=== PATIENT | male | born 1940 | race Caucasian/White ===

== ENCOUNTER 2019-05-22 19:50 | Inpatient (IN) | payer MEDICAID, MEDICARE ==
[~2019-05-22] VITALS: Ht 172.7 cm; Wt 70.3 kg
[~2019-05-22 19:50] MED LIST: LR 1,000 ML IV.SOLN IV ONE; MIDAZOLAM HCL 5 MG/5 ML VIAL IVP ONE; NS IRRIG SOLN 1000 ML IR ONE
[2019-05-22 19:55] VITALS: BP_SYST 99
--- NOTE | 2019-05-22 20:00 | NUR ---
patient BIB BLS transport from [facility] with c/o lower left leg and foot infection. patient is AOx2 and can not move foot. cap refill is greater than 3. no other complaint or injury at this time.
--- NOTE | 2019-05-22 20:10 | NUR ---
patient has 6-8 large circular growths that are hard to the touch. no drainage note. foot left open to air.
--- NOTE | 2019-05-22 20:10 | NUR ---
ER at bedside examining patient.
[2019-05-22] MEDS ORDERED: NACL 0.9% 1,000 ML IV ONE (20:24)
[2019-05-22] MEDS ORDERED: ACET325T53 PO (20:30)
[2019-05-22] MEDS ORDERED: DOCU-144 PO (20:30)
[2019-05-22] MEDS ORDERED: NOR10 PO (20:30)
[2019-05-22] MEDS ORDERED: VANCOMYCIN HCL 1,000 MG in NS 250 ML IV ONE (20:30)
--- NOTE | 2019-05-22 20:31 | NUR ---
Medication reconciliation completed with information provided by [facility]. Any prior medication reconciliation on file was reviewed and corrected.
--- NOTE | 2019-05-22 20:45 | NUR ---
unable to obtain urine. notified.
[2019-05-22 21:56] LABS: BASOPHILS # (AUTO) 0.1 K/uL (0.0-0.2); BASOPHILS % (AUTO) 0.8 % (0.0-2.0); EOSINOPHILS # (AUTO) 0.4 K/uL (0.0-0.4); EOSINOPHILS % (AUTO) 5.1 % (0.0-4.0); HEMATOCRIT 24.5 % (36-54); HEMOGLOBIN 8.2 g/dL (14.0-18.0); LYMPHOCYTES # (AUTO) 1.9 K/uL (1.0-5.5); MEAN CORPUSCULAR HEMOGLOBIN 28 pg (27-31); MEAN CORPUSCULAR HGB CONC 33 % (32-36); MEAN CORPUSCULAR VOLUME 83 fL (79.0-98.0); MONOCYTES # (AUTO) 0.9 K/uL (0.0-1.0); MONOCYTES % (AUTO) 11.8 % (1.7-9.3); NEUTROPHILS # (AUTO) 4.7 K/uL (1.8-7.7); NEUTROPHILS % (AUTO) 58.3 % (40.0-70.0); PLATELET COUNT (AUTO) 274 K/uL (130-430); RED BLOOD CELL COUNT(AUTO) 2.96 MIL/uL (4.2-6.2); RED CELL DISTRIBUTION WIDTH 20.6 % (9.0-15.0)
--- NOTE | 2019-05-22 22:25 | NUR ---
aPatient will be admitted to care of Dr. Ramirez. Admitted to tele unit. Will go to room 106a. Belongings list completed. Summary report printed. Report will be given at bedside.
[2019-05-22] MEDS ORDERED: VANCOMYCIN HCL 1000 MG/VIAL IV ONE (22:33)
[2019-05-22 22:39] LABS: ANION GAP 5 (5-15); CHLORIDE 106 mmol/L (98-107); CREATININE 0.79 mg/dL (0.55-1.30); POTASSIUM 3.8 mmol/L (3.5-5.1); SODIUM SERUM 137 mmol/L (136-145); TOTAL BILIRUBIN 0.3 mg/dL (0.0-1.0); UREA NITROGEN, BLOOD 16 mg/dL (8-21)
--- NOTE | 2019-05-22 22:40 | NUR ---
ADMISSION NOTE Received patient from ER via ana paula, received report from ANDREW Stephen. Patient admitted with diagnosis of Infection Malignant Melanoma. Daughters at the bedside. Patient oriented to hospital routine, call light, toileting and safety/fall precautions. Bed alarm on. Endorsed to ANDREW Hilario.
[2019-05-22 22:50] VITALS: BP_SYST 100
--- NOTE | 2019-05-22 23:00 | NUR ---
Pt incontinent of large amount of soft brownish stool. Incontinent/rebeca care given.
[2019-05-22] MEDS ORDERED: HYDR-4272 PO (23:01)
[2019-05-22 23:11] LABS: GLUCOSE 94 mg/dL (70-99)
[2019-05-22 23:12] LABS: ALANINE AMINOTRANSFERASE 12 U/L (12-78); ASPARTATE AMINOTRANSFERASE 15 U/L (10-37)
[2019-05-22 23:14] LABS: ALBUMIN 1.6 g/dL (3.4-4.8)
--- NOTE | 2019-05-22 23:20 | NUR ---
Wound care to RLE done after photos were taken. Please see documentation in Admission Assessment.
[2019-05-22] MEDS ORDERED: PIPERACILLIN/TAZOBACTAM 3.375 GM/VIAL (ZOSYN) IV ONE (23:28)
[2019-05-22 23:51] LABS: CALCIUM 8.1 mg/dL (8.4-11.0)
[2019-05-23] MEDS ORDERED: PIPERACILLIN/TAZOBACTAM 3.375 GM/VIAL (ZOSYN) IV ONE (00:29)
--- NOTE | 2019-05-23 00:33 | NUR ---
CONSULT: CONSULT CALLED FOR DR. DONNA SANCHEZ I SPOKE WITH HANS MAC REASON FOR CONSULT: INFECTED OF MALIGNANT MELANOMA LEFT LEG REQUESTING CONSULT: DR NEVILLE FUNERAL SERVICE LICENSEE PHONE NUMBER: [phone]
--- NOTE | 2019-05-23 00:36 | NUR ---
CONSULT: CONSULT CALLED FOR DR. ALCAZAR I SPOKE WITH GUERDA MAC REASON FOR CONSULT: INFECTED OF MALIGNANT MELANOMA LEFT LEG REQUESTING CONSULT: DR. NEVILLE BEST WORKER PHONE NUMBER: [phone]
--- NOTE | 2019-05-23 00:40 | NUR ---
Pt is confused and oriented to his name only. Pt took off his child monitor. Pt also took the Jose Luis dressing off his IV site in left hand. Pt was reoriented to his room and surrounding. surveillance monitor's electrodes were reapplied. IV site in left hand was reinforced with tape. Pt was instructed not to take off his child monitor or IV, but pt just covered himself up with his bed linen. Fall and safety precautions are in place.
[2019-05-23] MEDS: D5/0.45 NS 1,000 ML IV SCH ×2 (00:43→17:11)
[2019-05-23] MEDS: PIPERACILLIN/TAZO 3.375/DEX-IS 50 ML IV SCH ×4 (00:47→22:00)
--- NOTE | 2019-05-23 01:45 | NUR ---
Pt is confused and oriented to his name only. No agitation noted. Pt noted to have removed the IV Angiocath in his left hand. The Angiocath is intact and on his bed. Pt rolled up part of the IV tubing into a circular form and left it on his bed. Pt also took off his gown and laboratory monitor. Pt rolled up the laboratory monitor's wires and formed a knot with them. Pt was reoriented to his room and surrounding. New IV line was restarted in pt's LFA with Angiocath 22G and the site was wrapped with Jose Luis. IVF of D51/2NS was resumed at 75ml/hr. Fall and safety precautions are in place.
--- NOTE | 2019-05-23 03:21 | NUR ---
Pt is sleeping without any distress noted. Left foot dressing is dry and intact. IVF is infusing well in LFA. Fall and safety precautions are in place.
--- NOTE | 2019-05-23 05:23 | NUR ---
Pt is resting quietly in bed. IVF is infusing well in RW. Fall and safety precautions are in place.
--- NOTE | 2019-05-23 05:23 | NUR ---
Pt is resting quietly in bed. IVF is infusing well in LFA. Fall and safety precautions are in place.
--- NOTE | 2019-05-23 06:37 | NUR ---
Pt is awake and resting comfortably in bed. Left leg dressing is dry and intact. IVF is infusing well in LFA. Fall and safety precautions are in place. Will endorse to day shift nurse.
--- NOTE | 2019-05-23 07:19 | NUR ---
Nutrition Update Yobani Scale 15 noted. Pt admitted for Infection of Malignant Melanoma Diet: no diet order BMI: 28.7 kg/m2 RD to follow per nutrition care standards.
--- NOTE | 2019-05-23 08:10 | NUR ---
RN INITIAL NOTES RECEIVED PATIENT IN BED ASLEEP, NO DISTRESS IVF INFUSING ORDERED . RESP EVEN AND UNLABORED, NO DISTRESS A TTHIS TIME, PATIENT COVERED AND DRESSING OF LEFT FOOT, NO FACIAL GRIMACE NOTED, CALLED DR NEVILLE FOR THE DIET , WILL ASSIST PATIENT FOR THE BREAKFAST, AWAITING FOR WOUND CONSULT TODAY
[2019-05-23 09:00] VITALS: BP_SYST 136
--- NOTE | 2019-05-23 10:00 | NUR ---
ROUNDS PATIENT SLEEPING AT THIS TIME BUT WITH EPISODES OF TAKING OUT HIS TELE BOW AND THREW IT OUT, PATIENT ALSO STARTED WITH NEW IV LINE TO RT ARM G 22 , FOR IV HYDRATION , ASSISTED WITH BREAKFAST AND JUST ATE OATMEAL, WILL MONITOR AND FOLLOW UP WITH
[2019-05-23 11:17] VITALS: BP_SYST 120
--- NOTE | 2019-05-23 12:30 | NUR ---
[LUNCH PATIENT ATE LUNCH WITH ASSIST AND REDIRECTED BEHAVIOR , INTERMITTENTLY SLEEPING.
--- NOTE | 2019-05-23 14:27 | NUR ---
ID ROUNDS/ORTHO CONSULT DR DAMION THOMPSON CAME IN SEEN PATIENT LEFT FOOT MELANOMA, SUGGEST TO CALL PCP FOR POSSIBLE ORTHO CONSULT, CALLED DR NEVILLE ORDERED FOR ORTHO CONSULT ,REFRIGERATION INSTALLER WILL PAGE CONSULT DR WAITE.
--- NOTE | 2019-05-23 15:02 | NUR ---
CONSULTATION PAGED REASON FOR CONSULTATION:LEFT LEG MALIGNANT MELANOMA WAS CONSULT CALLED?Y PERSON WHO WAS NOTIFIED:HENRY CONSULTING PHYSICIAN:DARIN GIBBS (ROYA GARDNER INTEGRATION SOFTWARE DEVELOPER) OSTEOPATHIC RESIDENT SPECIALTY:ORTHO OSTEOPATHIC RESIDENT PHONE NUMBER:[phone] REQUESTING PHYSICIAN:BRONSON SUTOTN
[2019-05-23 15:48] VITALS: BP_SYST 130
--- NOTE | 2019-05-23 16:00 | NUR ---
ROUNDS FAMILY AT BEDSIDE BUT NOT THE RP . SPOKE WITH SON CASH INFORMED ABOUT PATIENT PLAN OF CONSULT TO THE ORTHO AND CONT ON ATB IV , PER SON HE WILL COME LATER, INFORMED SISTER AND SISTER LEFT DRESSING WAS DONE EARLIER AND AWAITING FOR THE SURGICAL AND ORTHO CONSULT, SAFETY ENSURED
--- NOTE | 2019-05-23 18:33 | NUR ---
END RN REPORT PATIENT SLEEPING AT THIS TIME , WILL OFFER DINNER ONCE AWAKE , SAFETY ENSURED AND CALL LIGHT WITHIN REACH, KEEP RESTED IN BED ALARM ACTIVATED.
--- NOTE | 2019-05-23 19:15 | NUR ---
OPENING NOTES Bedside report received from dayshift nurse. Patient received lying in bed, sleeping. No s/s of acute distress noted. Breathing even and unlabored. Call light with patient. Bed alarm on. Bed is locked and at lowest position. Will continue to monitor.
[2019-05-23 20:00] VITALS: BP_SYST 135
--- NOTE | 2019-05-23 21:00 | NUR ---
NEW IV New IV site done at right forearm, 22 gauge. Patient tolerated well. IV site patent, no signs of infiltration noted. IVF infusing well. Call light with patient. Bed alarm on. Will continue to monitor .
--- NOTE | 2019-05-23 23:00 | NUR ---
ROUNDS Patient in bed sleeping at this time. No s/s of acute distress noted. Breathing even and unlabored. Call light with patient. Will continue to monitor.
[2019-05-24] MEDS: D5/0.45 NS 1,000 ML IV SCH ×2 (00:37→15:07)
--- NOTE | 2019-05-24 01:00 | NUR ---
ROUNDS Patient sleeping. No signs of discomfort noted. Chest rise and fall even bilaterally. All needs met at this time. Call light with patient. Bed alarm on. Will continue to monitor.
[2019-05-24 01:20] VITALS: BP_SYST 104
--- NOTE | 2019-05-24 03:00 | NUR ---
ROUNDS Patient in bed sleeping at this time. No s/s of acute distress noted. Breathing even and unlabored. IVF infusing well. Call light with patient. Bed alarm on. Will continue to monitor.
--- NOTE | 2019-05-24 05:00 | NUR ---
ROUNDS/REFUSED LAB Patient in bed resting at this time. No signs of discomfort noted. Chest rise and fall even bilaterally. IVF infusing well. Call light with patient. Bed alarm on. Will continue to monitor. Machine Cloth Measurer informed RN that patient was refusing blood draw, will try again later.
[2019-05-24] MEDS: PIPERACILLIN/TAZO 3.375/DEX-IS 50 ML IV SCH ×3 (05:22→22:08)
--- NOTE | 2019-05-24 06:42 | NUR ---
CLOSING NOTES Patient in bed sleeping at this time. No s/s of acute distress noted. Breathing even and unlabored. IVF infusing well, IV site patent, no signs of infiltration or infection noted. All needs met throughout shift. Fall and safety precautions maintained throughout shift. Will continue to monitor until patient care is endorsed to oncoming dayshift nurse.
--- NOTE | 2019-05-24 07:50 | NUR ---
OPENING NOTE RECEIVED PATIENT FROM SOCIAL SCIENCE MANAGER. RESTING IN BED; EASILY AROUSABLE. NO S/SX PAIN/DISCOMFORT. ROOM AIR. NO ACUTE DISTRESS. NO SOB. RESPIRATION EVEN AND UNLABORED. SKIN WARM AND DRY TO TOUCH. IV INTACT AND PATENT. WOUND DRESSING CLEAN AND DRY. BED IN LOW AND LOCKED POSITION. SIDERAIL UP X2. BED ALARM ON. CALL LIGHT IN REACH. BLUE PHONE AVAILABLE AT BEDSIDE FOR TRANSLATION.
[2019-05-24 08:00] VITALS: BP_SYST 126
[2019-05-24] MEDS ORDERED: DIATR MEGLU/DIATRIZ SOD 30 ML SOLUTION PO ONE (08:47)
[2019-05-24 09:19] LABS: BASOPHILS % (AUTO) 0.6 % (0.0-2.0); EOSINOPHILS # (AUTO) 0.4 K/uL (0.0-0.4); EOSINOPHILS % (AUTO) 5.3 % (0.0-4.0); HEMATOCRIT 26.9 % (36-54); HEMOGLOBIN 8.8 g/dL (14.0-18.0); LYMPHOCYTES # (AUTO) 1.1 K/uL (1.0-5.5); LYMPHOCYTES % (AUTO) 13.8 % (20.5-51.5); MEAN CORPUSCULAR HEMOGLOBIN 27 pg (27-31); MEAN CORPUSCULAR HGB CONC 33 % (32-36); MEAN CORPUSCULAR VOLUME 83 fL (79.0-98.0); MONOCYTES # (AUTO) 0.6 K/uL (0.0-1.0); NEUTROPHILS # (AUTO) 5.7 K/uL (1.8-7.7); NEUTROPHILS % (AUTO) 72.3 % (40.0-70.0); PLATELET COUNT (AUTO) 266 K/uL (130-430); RED BLOOD CELL COUNT(AUTO) 3.23 MIL/uL (4.2-6.2); RED CELL DISTRIBUTION WIDTH 20.5 % (9.0-15.0); WHITE BLOOD COUNT (AUTO) 7.9 K/uL (4.8-10.8)
--- NOTE | 2019-05-24 09:31 | NUR ---
Dietitian Recommendations *Recommend Mechanical soft diet w/ Ensure Enlive BID and Rashad BID. ONS will provide additional 860 kcal and 45 gm protein daily. *Consider Megace to stimulate appetite. *Encourage pt to increase PO intake. Please see Nutritional Assessment CHARANJIT, RD
[2019-05-24 09:33] LABS: ANION GAP 3 (5-15); CALCIUM 8.2 mg/dL (8.4-11.0); CHLORIDE 106 mmol/L (98-107); CREATININE 0.72 mg/dL (0.55-1.30); GLUCOSE 138 mg/dL (70-99); POTASSIUM 3.5 mmol/L (3.5-5.1); SODIUM SERUM 136 mmol/L (136-145); UREA NITROGEN, BLOOD 7 mg/dL (8-21)
--- NOTE | 2019-05-24 10:30 | NUR ---
NOTE PATIENT AWAKE. INCONTINENCE CARE PROVIDED WITH CLINICAL PHARMACY COORDINATOR, ANDERS WELL. NO ACUTE DISTRESS. ALL NEEDS MET. CONT TO MONITOR
[2019-05-24 11:08] VITALS: BP_SYST 108
[2019-05-24] MEDS ORDERED: IOHEXOL 100 ML IV ONE (11:31)
--- NOTE | 2019-05-24 12:20 | NUR ---
NOTE REPOSITIONED PATIENT FOR LUNCH. PATIENT ATE LUNCH WITH GOOD APPETITE. NO ACUTE DISTRESS. KEPT CLEAN AND DRY. CONT TO MONITOR
--- NOTE | 2019-05-24 13:30 | NUR ---
WOUND EVALUATION: late note for 1330 on 05/24/19. Wound Consult received from Dr. Ramirez. Thank you, Dr. Ramirez, for the consult. Patient received in a [place] Bed with an Isoflex PLACIDO mattress with low air loss therapy, awake, alert, confused. Patient is unable to turn in bed independently, but can lift his legs and tends to keep the right leg crossed over the left at the ankles. Yobani Score is a 14. Past Medical History: Malignant Melanoma of the left lower extremity (with nodular lesions and necrosis), Dementia, Sepsis, Hypertension, Constipation, Anemia, Tracheostomy placement, abnormalities of gait and mobility. Recent Labs: WBC 7.9, RBC 3.23, hemoglobin 8.8, hematocrit 26.9, BUN 7, creatinine 0.72, glucose 138, calcium 8.2, albumin 1.6. Intrinsic factors that delay wound healing: Malignant Melanoma, Anemia, severe Hypoalbuminemia. Extrinsic factors that delay wound healing: Decreased mobility. Microbiology: Blood culture results 2 in progress. MRSA screen results negative. Wound culture results positive for Pseudomonas aeruginosa and Providencia stuartii. Wound Assessment: 1. Left Medial Malleolus/Plantar Foot: Large Malignant Melanoma Nodular lesion, present on admission. Site has 50% yellow slough, 40% pink tissue, 10% black tissue. Moderate odor, small sanguineous drainage. Jennifer-wound intact. Site measures 20.7 cm x 9.7 cm. 2. Left Lateral Malleolus: Malignant Melanoma Nodular lesion, present on admission. site has 90% pink tissue, 10% yellow slough. Mild odor, scant sanguineous drainage. Periwound intact. Site measures 4.5 cm x 6.5 cm. 3. Left Mid Medial Lower Extremity: Malignant Melanoma Nodular lesion, present on admission. Nodule present with pink-colored tissue. No odor, no drainage. Jennifer-lesion intact. Site measures 2.5 cm x 2.7 cm. 4. Left Mid Medial Lower Extremity, inferior to site 3: Malignant Melanoma Nodular lesion, present on admission. Nodule present with pink-colored tissue. No odor, no drainage. Jennifer-lesion intact. Site measures 2.7 cm x 2.5 cm. 5. Left Posterior Lateral Foot: Malignant Melanoma Nodular lesion, present on admission. Nodule present with 100% red tissue. No odor, scant sanguineous drainage. Jennifer-lesion intact. Site measures 11.5 cm x 20.0 cm. 6. Left Dorsal Medial Foot: Malignant Melanoma Nodular wound, present on admission. Wound bed has 100% red tissue. No odor, no drainage. Jennifer-lesion intact. Site measures 0.7 cm x 0.5 cm. 7. Left Dorsal Lateral Foot: Malignant Melanoma Nodular wound, present on admission. Wound bed has 100% red tissue. No odor, no drainage. Jennifer-lesion intact. Site measures 0.8 cm x 0.6 cm. Recommend: Cleanse wounds with normal saline. Apply SurePrep to jennifer-wounds. Apply Venelex ointment to wound beds. Cover with foam dressings, then ABD pads. Wrap with socorro wrap. Perform wound care daily, and as needed for dressing soiling or dislodgement. Also recommend: Encourage and assist patient as needed with repositioning every 2 hours with pillow support and off-load pressure areas with pillows for pressure re-distribution. Offload, elevate and float bilateral heels with pillows. Perform skin care and monitor skin integrity Q shift. Use moisture barrier cream on buttocks and other moisture susceptible areas QID and as needed for soiling. Maintain patient on a low air-loss mattress. Dr. Ma is on the case for a surgical consult.
--- NOTE | 2019-05-24 14:00 | NUR ---
WOUND CARE PATIENT STABLE. PROVIDED WOUND CARE. PATIENT ANDERS WELL. REPOSITIONED FOR COMFORT. ALL NEEDS MET. CONT TO MONITOR
--- NOTE | 2019-05-24 15:01 | NUR ---
Nutrition Consult Nutrition Consult received for Malignant Melanoma w/ nodular lesions/necrosis LLE 05/24/19 2919. Pt was seen and assessed by RD today, 05/24/19. Please refer to Nutrition Assessment for details. RD to continue to follow as per nutrition care standards.
--- NOTE | 2019-05-24 15:10 | NUR ---
NOTE ADMINISTERED IV ZOSYN ORDERED AND HUNG NEW IV FLUID. INCONTINENCE CARE PROVIDED WITH SPECIFICATION CONSULTANT. REPOSITIONED FOR COMFORT. ALL NEEDS MET. CONT TO MONITOR. TWO DAUGHTERS AT BEDSIDE
[2019-05-24 15:19] VITALS: BP_SYST 133
[2019-05-24] MEDS: BALSAM PERU/CASTOR OIL 60 GM OINT...G. TP SCH (16:17)
--- NOTE | 2019-05-24 17:00 | NUR ---
NOTE PATIENT RESTING IN BED AWAKE. STABLE. NO ACUTE DISTRESS. ANDERS IVF. KEPT CLEAN AND DRY. CALL LIGHT IN REACH. CONT TO MONITOR
--- NOTE | 2019-05-24 17:07 | NUR ---
/MARLEN PAGED [phone] FOR CONSULT. 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 AWAITING FOR CALL BACK
--- NOTE | 2019-05-24 17:35 | NUR ---
SPOKE TO REGARDING CONSULT; PER [facility] INSURANCE IS NOT ACCEPTED. WILL NOTIFY
--- NOTE | 2019-05-24 18:39 | NUR ---
NOTE PATIENT AWAKE IN BED. STABLE. NO ACUTE DISTRESS. IV INTACT AND PATENT; ANDERS IVF ORDERED. INCONTINENCE CARE PROVIDED WITH PAEDIATRIC THORACIC PHYSICIAN. REPOSITIONED FOR COMFORT. BED IN LOW AND LOCKED POSITION. SIDERAIL UPX3. BED ALARM ON. CALL LIGHT IN REACH. CONT TO MONITOR. WILL ENDORSE TO ONCOMING SHIFT
--- NOTE | 2019-05-24 19:50 | NUR ---
PM SHIFT ASSESSMENT Recieved patient lying in bed, pulled out IV Line and taking clothes off, Dr. Ramirez made rounds, new medication ordered for agitation. Patient's vital signs stable, on room air, placed new IV line to right ac with 22 guage catheter, good blood return noted, secured with opsite and tape. Resumed IVF. Fall and safety measures in place, bed alarm on, will closely monitor.
[2019-05-24 20:00] VITALS: BP_SYST 125
[2019-05-24] MEDS ORDERED: LORazepam 2 MG/ML VIAL IVP PRN (20:15)
--- NOTE | 2019-05-24 20:21 | NUR ---
MD DR. Ma, surgeon, made rounds, spoke to patient's grandson over the phone regarding patient's status. New orders given.
[2019-05-24 20:30] LABS: BASOPHILS % (AUTO) 0.5 % (0.0-2.0); EOSINOPHILS # (AUTO) 0.5 K/uL (0.0-0.4); EOSINOPHILS % (AUTO) 5.8 % (0.0-4.0); HEMATOCRIT 28.1 % (36-54); HEMOGLOBIN 9.2 g/dL (14.0-18.0); LYMPHOCYTES # (AUTO) 1.8 K/uL (1.0-5.5); LYMPHOCYTES % (AUTO) 19.9 % (20.5-51.5); MEAN CORPUSCULAR HEMOGLOBIN 28 pg (27-31); MEAN CORPUSCULAR HGB CONC 33 % (32-36); MEAN CORPUSCULAR VOLUME 84 fL (79.0-98.0); MONOCYTES % (AUTO) 10.7 % (1.7-9.3); NEUTROPHILS # (AUTO) 5.8 K/uL (1.8-7.7); NEUTROPHILS % (AUTO) 63.1 % (40.0-70.0); PLATELET COUNT (AUTO) 325 K/uL (130-430); RED BLOOD CELL COUNT(AUTO) 3.36 MIL/uL (4.2-6.2); RED CELL DISTRIBUTION WIDTH 20.7 % (9.0-15.0); WHITE BLOOD COUNT (AUTO) 9.2 K/uL (4.8-10.8)
[2019-05-24 20:39] LABS: ANION GAP 6 (5-15); CALCIUM 8.2 mg/dL (8.4-11.0); CHLORIDE 105 mmol/L (98-107); CREATININE 0.68 mg/dL (0.55-1.30); GLUCOSE 104 mg/dL (70-99); POTASSIUM 3.9 mmol/L (3.5-5.1); SODIUM SERUM 137 mmol/L (136-145); UREA NITROGEN, BLOOD 12 mg/dL (8-21)
--- NOTE | 2019-05-24 22:24 | NUR ---
RN ROUNDS/IV Patient moved to room 113a, closer to nursing station. Patient pulled out IV line, new IV line placed to right upper arm with 22 gauge catheter, good blood return noted, secured with opsite and tape, resumed IVF and administered IV antibiotic of Zosyn. Patient had a bowel movement, incontinence care provided, repositioned for comfort, bed alarm on.
--- NOTE | 2019-05-25 00:23 | NUR ---
RN ROUNDS Patient asleep, respirations even and unlabored, vital signs stable, IVF ongoing, safety and fall precautions in place, will closely monitor.
--- NOTE | 2019-05-25 02:16 | NUR ---
RN ROUNDS/IV Patient pulled out IV line, Patient had another bowel movement, incontinence care provided, safety precautions in place, bed alarm on.
--- NOTE | 2019-05-25 04:17 | NUR ---
RN ROUNDS Patient asleep, respirations even and unlabored, vital signs stable, IVF ongoing, safety and fall precautions in place, will closely monitor. Addendum: 05/25/19 at 0418 by Shaista Farah RN no IVF infusing, patient has no iv line.
[2019-05-25] MEDS: D5/0.45 NS 1,000 ML IV SCH ×2 (05:09→16:53)
[2019-05-25] MEDS: PIPERACILLIN/TAZO 3.375/DEX-IS 50 ML IV SCH ×3 (05:09→20:58)
--- NOTE | 2019-05-25 06:12 | NUR ---
RN ROUNDS/IV Patient resting quietly, new IV line placed to left upper arm with 22 guage catheter, good blood return noted, secured with opsite and tape, resumed IVF and antibiotics administered, fall and safety precautions maintained, bed alarm on, will continue to monitor until report given to am nurse.
--- NOTE | 2019-05-25 07:20 | NUR ---
AM rounds: Awake, oriented x1. Breathing is even, non labored. IV fluids of D5 1/2 NS at 75 cc/hr on the on the left upper arm gauge 22. Patient is calm. Safety precautions in place. Call light within reach.
[2019-05-25 07:52] LABS: BASOPHILS % (AUTO) 0.5 % (0.0-2.0); EOSINOPHILS # (AUTO) 0.5 K/uL (0.0-0.4); EOSINOPHILS % (AUTO) 5.1 % (0.0-4.0); HEMATOCRIT 26.4 % (36-54); HEMOGLOBIN 8.8 g/dL (14.0-18.0); LYMPHOCYTES # (AUTO) 1.7 K/uL (1.0-5.5); LYMPHOCYTES % (AUTO) 18.5 % (20.5-51.5); MEAN CORPUSCULAR HEMOGLOBIN 28 pg (27-31); MEAN CORPUSCULAR HGB CONC 33 % (32-36); MEAN CORPUSCULAR VOLUME 84 fL (79.0-98.0); MONOCYTES % (AUTO) 11.1 % (1.7-9.3); NEUTROPHILS # (AUTO) 5.9 K/uL (1.8-7.7); NEUTROPHILS % (AUTO) 64.8 % (40.0-70.0); PLATELET COUNT (AUTO) 309 K/uL (130-430); RED BLOOD CELL COUNT(AUTO) 3.14 MIL/uL (4.2-6.2); RED CELL DISTRIBUTION WIDTH 20.4 % (9.0-15.0); WHITE BLOOD COUNT (AUTO) 9.1 K/uL (4.8-10.8)
[2019-05-25 07:55] VITALS: BP_SYST 134
[2019-05-25] MEDS: BALSAM PERU/CASTOR OIL 60 GM OINT...G. TP SCH (08:41)
--- NOTE | 2019-05-25 11:00 | NUR ---
Family visit: Patient's son Chuck and grandson Reji at bedside. Will let nurse know this afternoon of their decision on the proposed surgery. Will need to discuss with the rest of the family.
[2019-05-25 11:30] VITALS: BP_SYST 136
--- NOTE | 2019-05-25 14:00 | NUR ---
IV start: IV is out. Started gauge 22 on the left upper arm with blood return on first attempt. Secured with tegaderm and kerlix wrap.
[2019-05-25 15:52] VITALS: BP_SYST 139
--- NOTE | 2019-05-25 16:16 | NUR ---
IV start: Patient pulled out IV again. Started gauge 22 on the left upper arm with blood return on first attempt. No infiltration when flushed. Secured with tegaderm and cooper bandage. IV fluids resumed.
--- NOTE | 2019-05-25 18:42 | NUR ---
end of shift: Patient is very confused, removing gowns and refused to be covered. Family walked in, questions and concerns were addressed.
--- NOTE | 2019-05-25 19:45 | NUR ---
PM SHIFT ASSESSMENT Recieved patient lying in bed, awake, no facial grimacing noted for pain, on room air, vital signs stable. Incontinence care provided, repositioned with pillow support, IV line to left upper arm intact and patent, IVF infusing at 75ml/hr, daughters at bedside, updated on plan of care, verbalized understanding, wants to speak to MD in person, will relay the message to the MD, fall and safety measures in place, bed alarm on, will closely monitor.
[2019-05-25 20:00] VITALS: BP_SYST 136
[2019-05-25] MEDS ORDERED: ACETAMINOPHEN 325 MG TABLET PO PRN (20:15)
[2019-05-25] MEDS: amLODIPine BESYLATE 10 MG TABLET PO SCH (20:15)
[2019-05-25] MEDS: DOCUSATE SODIUM 100 MG CAPSULE PO SCH (22:09)
--- NOTE | 2019-05-25 22:30 | NUR ---
RN ROUNDS Patient sleeping, respirations even and unlabored, due medications given earlier, repositioned for comfort, safety measures in place, will closely monitor.
--- NOTE | 2019-05-25 23:28 | NUR ---
RN ROUNDS/MD Spoke to Dr. ALCAZAR on the phone regarding patient's family consent for surgery, family still undecisive and wants to speak to the MD in person, Dr. ALCAZAR will try to call family in the am. Patient remains asleep, respirations even and unlabored, IVF ongoing, vital signs stable. Fall and safety precautions in place.
--- NOTE | 2019-05-26 00:56 | NUR ---
RN ROUNDS Patient woke up and trying to get out of bed, reoriented to time and place, placed back in bed, repositioned for comfort, bed alarm on.
[2019-05-26] MEDS ORDERED: HYDROcodone/ACETAMIN 5-325 MG TAB (NORCO/ VICODIN) PO PRN (02:00)
--- NOTE | 2019-05-26 02:08 | NUR ---
RN ROUNDS Patient asleep, respirations even and unlabored, vital signs stable, IVF ongoing, safety and fall precautions in place, will closely monitor.
--- NOTE | 2019-05-26 04:01 | NUR ---
RN ROUNDS Patient asleep, respirations even and unlabored, IVF ongoing, safety and fall precautions in place, will closely monitor.
[2019-05-26] MEDS: D5/0.45 NS 1,000 ML IV SCH ×2 (05:17→20:58)
[2019-05-26] MEDS: PIPERACILLIN/TAZO 3.375/DEX-IS 50 ML IV SCH ×3 (05:17→21:28)
--- NOTE | 2019-05-26 05:46 | NUR ---
RN ROUNDS/IV Patient awake and pulled out his IV line to left upper arm, new IV line placed to right forearm with 22 gauge catheter, good blood return noted, secured with opsite and tape, resumed IVF and antibiotics administered, fall and safety precautions maintained, bed alarm on, will continue to monitor until report given to am nurse.
--- NOTE | 2019-05-26 06:02 | NUR ---
RN ROUNDS/IV Patient asleep, IVF infusing, fall and safety precautions maintained, bed alarm on, will continue to monitor until report given to am nurse.
[2019-05-26 07:17] LABS: BASOPHILS % (AUTO) 0.6 % (0.0-2.0); EOSINOPHILS # (AUTO) 0.5 K/uL (0.0-0.4); EOSINOPHILS % (AUTO) 6.3 % (0.0-4.0); HEMATOCRIT 25.9 % (36-54); HEMOGLOBIN 8.5 g/dL (14.0-18.0); LYMPHOCYTES # (AUTO) 1.6 K/uL (1.0-5.5); LYMPHOCYTES % (AUTO) 19.1 % (20.5-51.5); MEAN CORPUSCULAR HEMOGLOBIN 28 pg (27-31); MEAN CORPUSCULAR HGB CONC 33 % (32-36); MEAN CORPUSCULAR VOLUME 84 fL (79.0-98.0); MONOCYTES # (AUTO) 0.9 K/uL (0.0-1.0); MONOCYTES % (AUTO) 10.3 % (1.7-9.3); NEUTROPHILS # (AUTO) 5.4 K/uL (1.8-7.7); NEUTROPHILS % (AUTO) 63.7 % (40.0-70.0); PLATELET COUNT (AUTO) 291 K/uL (130-430); RED BLOOD CELL COUNT(AUTO) 3.08 MIL/uL (4.2-6.2); RED CELL DISTRIBUTION WIDTH 20.5 % (9.0-15.0); WHITE BLOOD COUNT (AUTO) 8.5 K/uL (4.8-10.8)
[2019-05-26 07:32] LABS: ANION GAP 5 (5-15); CALCIUM 8.2 mg/dL (8.4-11.0); CHLORIDE 107 mmol/L (98-107); CREATININE 0.74 mg/dL (0.55-1.30); GLUCOSE 90 mg/dL (70-99); SODIUM SERUM 139 mmol/L (136-145); UREA NITROGEN, BLOOD 11 mg/dL (8-21)
--- NOTE | 2019-05-26 08:30 | NUR ---
am rounds: Patient is awake, confused. Set up for breakfast. IV fluids of D5 1/2 NS at 75 cc/hr on the right upper arm gauge 22. Safety precautions in place.
[2019-05-26 09:04] VITALS: BP_SYST 113
[2019-05-26] MEDS: BALSAM PERU/CASTOR OIL 60 GM OINT...G. TP SCH (09:06)
[2019-05-26] MEDS: amLODIPine BESYLATE 10 MG TABLET PO SCH (09:07)
--- NOTE | 2019-05-26 12:30 | NUR ---
MD CALL: Provided family's phone number to Dr. ALCAZAR.
[2019-05-26 13:10] VITALS: BP_SYST 108
--- NOTE | 2019-05-26 14:39 | NUR ---
IV start: Started gauge 22 on the right forearm. Blood return on first attempt. secured with tegaderm, tape and kerlix wrap.
--- NOTE | 2019-05-26 15:15 | NUR ---
DC Planning: Called Nuno/chao to follow up on leg amputation decision for the pt. Nuno stated she already spoke with the rest of the family and ISAMAR/Chuck. All agreed with the leg amputation plan. Liam and ANDREW Cazares will contact [facility] for the surgery consent. Addendum: 05/26/19 at 1548 by Efren Hartman RN >> Per NADREW Cazares, she spoke with Chuck/son and asking him to come in to sign the surgery consent today.
--- NOTE | 2019-05-26 15:37 | NUR ---
Family Communication: Spoke with Chuck (patient's son), family decided to proceed with the surgery. Dr. Ma is aware.
[2019-05-26 17:05] VITALS: BP_SYST 141
--- NOTE | 2019-05-26 18:05 | NUR ---
END OF SHIFT: Needs attended. No change in assessment. Family at bedside.
[2019-05-26 18:28] LABS: BASOPHILS # (AUTO) 0.1 K/uL (0.0-0.2); BASOPHILS % (AUTO) 0.7 % (0.0-2.0); EOSINOPHILS # (AUTO) 0.5 K/uL (0.0-0.4); EOSINOPHILS % (AUTO) 5.8 % (0.0-4.0); HEMATOCRIT 29.4 % (36-54); HEMOGLOBIN 9.8 g/dL (14.0-18.0); LYMPHOCYTES # (AUTO) 1.9 K/uL (1.0-5.5); LYMPHOCYTES % (AUTO) 24.2 % (20.5-51.5); MEAN CORPUSCULAR HEMOGLOBIN 28 pg (27-31); MEAN CORPUSCULAR HGB CONC 33 % (32-36); MEAN CORPUSCULAR VOLUME 84 fL (79.0-98.0); MONOCYTES # (AUTO) 0.7 K/uL (0.0-1.0); MONOCYTES % (AUTO) 8.9 % (1.7-9.3); NEUTROPHILS # (AUTO) 4.8 K/uL (1.8-7.7); NEUTROPHILS % (AUTO) 60.4 % (40.0-70.0); PLATELET COUNT (AUTO) 348 K/uL (130-430); RED BLOOD CELL COUNT(AUTO) 3.53 MIL/uL (4.2-6.2); RED CELL DISTRIBUTION WIDTH 20.4 % (9.0-15.0)
[2019-05-26 18:30] LABS: ANION GAP 6 (5-15); CALCIUM 8.7 mg/dL (8.4-11.0); CHLORIDE 105 mmol/L (98-107); CREATININE 0.71 mg/dL (0.55-1.30); GLUCOSE 106 mg/dL (70-99); SODIUM SERUM 138 mmol/L (136-145); UREA NITROGEN, BLOOD 8 mg/dL (8-21)
[2019-05-26 18:33] LABS: INR 1.2 (0.80-1.20); PROTHROMBIN TIME 11.7 SECS (9.5-12.5)
--- NOTE | 2019-05-26 19:19 | NUR ---
Verification of transfusion order:/ family notification Per Dr. Ma, only type and screen for now, do not transfuse. Patient's son Chuck is aware of surgery schedule for tomorrow at 1400.
--- NOTE | 2019-05-26 19:30 | NUR ---
NOTES: pt. family at bedside, aware of pt. surgery tomorrow, made pt. aware of nothing to drink nor eat after midnight. informed also about condom cath to insert to collect urine sample. pt. appears confused. fall risk precautions. call light at bedside.
--- NOTE | 2019-05-26 20:00 | NUR ---
NOTES: pt. awakened, VS checked. turn to sides by himself. left foot dressing intact.
[2019-05-26 20:30] VITALS: BP_SYST 102
[2019-05-26] MEDS: DOCUSATE SODIUM 100 MG CAPSULE PO SCH (20:59)
--- NOTE | 2019-05-26 22:40 | NUR ---
NOTES: Yumiko from lab called telling me the blood drawn for type and screen will be sent to [facility]. made them aware, surgery is schedule in the afternoon.
[2019-05-27] VITALS (7 sets, daily range): BP systolic 101–142
--- NOTE | 2019-05-27 | NUR ---
NOTES: pt. checked, found out IV came out, pt. pulled it out. gets confused.
--- NOTE | 2019-05-27 01:30 | NUR ---
NOTES: restarted another IV site by nurse Hailee and resume IVF, wrapped with kerlix to secure site. condom cath removed but able to save urine for the test. MRSA swab attempted but pt. covering his nose, will try later.
[2019-05-27 02:03] LABS: BILIRUBIN,URINE NEGATIVE (NEGATIVE); BLOOD, URINE NEGATIVE (NEGATIVE); CLARITY/URINE CLEAR (CLEAR); COLOR,URINE YELLOW (YELLOW); GLUCOSE,URINE NEGATIVE (NEGATIVE); KETONES,URINE NEGATIVE (NEGATIVE); LEUKOCYTE ESTERASE ,URINE NEGATIVE (NEGATIVE); NITRITE, URINE NEGATIVE (NEGATIVE); PH,URINE 6.5 (5.0-8.0); PROTEIN URINE NEGATIVE (NEGATIVE)
--- NOTE | 2019-05-27 04:18 | NUR ---
NOTES: pt. sleeping. IVF patent. condition unchanged. kept NPO for surgery today.
--- NOTE | 2019-05-27 04:55 | NUR ---
NOTES: pt. pulled out IV again, incontinent of urine, rebeca care done and kept dry. MRSA swab of nares done and sent to lab.
--- NOTE | 2019-05-27 06:00 | NUR ---
NOTES: remain sleeping, no acute distress.
[2019-05-27] MEDS: PIPERACILLIN/TAZO 3.375/DEX-IS 50 ML IV SCH ×3 (06:14→21:18)
--- NOTE | 2019-05-27 06:30 | NUR ---
CLOSING NOTES; reinserted another IV on left forearm with gauge # 22, resume IV and antibiotic. secure IV site with gauze dressing. lab draw also this am. condition guarded. schedul for surgery this pm, consent signed and pre op checklist initiated. for further care and assistance.
--- NOTE | 2019-05-27 06:55 | NUR ---
NOTES: Dr. Ma called checking if the consent was signed , set @ 2pm surgery today. will endorse to incoming shift.
[2019-05-27 07:18] LABS: BASOPHILS # (AUTO) 0.1 K/uL (0.0-0.2); BASOPHILS % (AUTO) 0.7 % (0.0-2.0); EOSINOPHILS # (AUTO) 0.6 K/uL (0.0-0.4); EOSINOPHILS % (AUTO) 6.5 % (0.0-4.0); HEMATOCRIT 25.5 % (36-54); HEMOGLOBIN 8.3 g/dL (14.0-18.0); LYMPHOCYTES # (AUTO) 1.9 K/uL (1.0-5.5); LYMPHOCYTES % (AUTO) 22.3 % (20.5-51.5); MEAN CORPUSCULAR HEMOGLOBIN 28 pg (27-31); MEAN CORPUSCULAR HGB CONC 33 % (32-36); MEAN CORPUSCULAR VOLUME 84 fL (79.0-98.0); MONOCYTES % (AUTO) 11.8 % (1.7-9.3); NEUTROPHILS # (AUTO) 5.1 K/uL (1.8-7.7); NEUTROPHILS % (AUTO) 58.7 % (40.0-70.0); PLATELET COUNT (AUTO) 284 K/uL (130-430); RED BLOOD CELL COUNT(AUTO) 3.03 MIL/uL (4.2-6.2); RED CELL DISTRIBUTION WIDTH 20.3 % (9.0-15.0); WHITE BLOOD COUNT (AUTO) 8.6 K/uL (4.8-10.8)
--- NOTE | 2019-05-27 07:38 | NUR ---
Patient opens eyes, appears restless; V/S stable. IV on the left wrist, #22. left lower extremity is wrapped with dressing. Call light in place, bed locked at the lowest position with alarm on, will continue to monitor.
[2019-05-27] MEDS: D5/0.45 NS 1,000 ML IV SCH ×2 (08:37→21:19)
[2019-05-27] MEDS: amLODIPine BESYLATE 10 MG TABLET PO SCH (09:00)
--- NOTE | 2019-05-27 10:02 | NUR ---
PATIENT IS CHANGED, TURNED AND REPOSITIONED FOR COMFORT AFTER URINARY INCONTINENCE
[2019-05-27] MEDS: BALSAM PERU/CASTOR OIL 60 GM OINT...G. TP SCH (10:20)
--- NOTE | 2019-05-27 12:05 | NUR ---
PATIENT'S FAMILY MEMBER AT BEDSIDE.
--- NOTE | 2019-05-27 14:30 | NUR ---
OR IS CALLED, AND INFORMED THAT DR. ALCAZAR IS RESCHEDULING THE SURGERY FOR TOMORROW. FAMILY IS NOTIFIED. AND DR. ALCAZAR AND KELIN ARE CALLED FOR FURTHER INSTRUCTIONS.
--- NOTE | 2019-05-27 15:32 | NUR ---
Nutrition Follow Up RD reviewed pt's current EMR including diet hx, physician notes, nursing notes, pertinent labs/meds/procedures, care trends and care activity. Current diet order: NPO x 1 day Subjective Information: Pt is scheduled for left AKA today per physician notes, remains NPO prior to procedure. Pt asleep, resting, no signs of acute distress per RD observation. No family at bedside at time of RD interview. No nausea, vomiting, or diarrhea per nursing. Patient is not a candidate for nutrition educationa at this time. Estimated Energy Expenditure (kcals/day) 0957-1273 kcal/day (30-35 kcal/kg CBW for wound healing) Estimated Protein Required (g/day) 105-140 gm/day (1.5-2 gm/kg CBW for wound healing) Estimated Fluid Required (l/day) 2.1-2.5 L/day (1ml/calorie for wound healing) Problem/Etiology/Signs/Symptoms Inadequate nutrient intake r/t poor appetite AEB PO intake not meeting 75% of estimated needs. *ongoing Increased nutrient needs r/t metabolic demands AEB estimated calorie and protein needs for wound healing. *ongoing Expected Outcomes/Goals Monitor appetite and PO intake w/ goal of pt meeting at least 75% of estimated nutritional needs, labs trending WNL, normal GI function, skin integrity/wt maintenance. Dietitian Recommendations *Continue NPO *If/when medically appropriate, consider a clear liquid diet. Follow Up High Risk: F/U in 2-3days LT, RD
--- NOTE | 2019-05-27 15:38 | NUR ---
Dietitian Recommendations *Continue NPO *If/when medically appropriate, consider a clear liquid diet. Please refer to Nutrition Follow up for further details. LT, TAWNYA
--- NOTE | 2019-05-27 16:30 | NUR ---
DR. NEVILLE IS INFORMED ABOUT PATIENT'S DELAY IN SURGERY AND RESUMED DIET FOR TODAY
--- NOTE | 2019-05-27 18:06 | NUR ---
DR. NEVILLE IS AT BEDSIDE ASSESSING PATIENT.
--- NOTE | 2019-05-27 19:15 | NUR ---
change of shift.pt.surgery re-scheduled;05/28/19.pt.presents quiescent affect;calm,somnolent.pt.presents iv access;intact; patent.iv fluids infusing.general statu stable.respiratory status stable@room air.call light/telephone w/in reach of the pt.
--- NOTE | 2019-05-27 20:00 | NUR ---
pt.assessed.v/s assessed;values w/in normal limits.pt.assessed for cleanliness.pt.cleaned.iv access;intact;patent. iv fluids infusing. pt.presents speech un-intelligible;language barrier extant?general status stable.respiratory status stable@room air; 02- sat%=96%call light/telephone placed w/in reach of the pt.
--- NOTE | 2019-05-27 21:00 | NUR ---
100p medication administered;colace;po.
[2019-05-27] MEDS: DOCUSATE SODIUM 100 MG CAPSULE PO SCH (21:18)
--- NOTE | 2019-05-27 22:00 | NUR ---
pt.assessed.pt.preset\n quiexcyt affect;calm,somnolent.ptr.assde for clenliness.pt.prespotioned.iv access;intact;patent;iv fluidsa infusing.yobany hinds.repsiratp[ry stau stable;unlaqbored.call loght/teldave sandoval w/in rch of the pt.
--- NOTE | 2019-05-28 | NUR ---
pt.assessed.v/s assessed:values w/in normal limits.pt.assessed for cleanliness.pt.cleaned.iv access;intact;patent.general status stable.respiratory status stable;unlabored.call light/telephone placed w/in reach of the pt.
[2019-05-28 00:08] VITALS: BP_SYST 123
--- NOTE | 2019-05-28 02:00 | NUR ---
pt.assessed.pt.presents quiescent affect;calm,somnolent.pt.assessed for cleanliness.pt.repositioned.iv access intact;patent; iv fluids infusing.general status stable.respiratory status stable.unlabored call light/telephone placed w/in reach of the pt.
--- NOTE | 2019-05-28 04:00 | NUR ---
pt.assessed.pt.presents quiescent affect;calm,somnolent.pt.assessed for cleanliness.pt.cleaned.pt.repositioned.general status stable.respiratory status stable;unlabored.iv access;intact;patent.;anesthsiologist present./nsg has spoken to son;arelirock ford anesethiology provided explination of the risk/benefits of the anethesia.son;areli logan has provided the consent anthesiology;telephone.connie/chg and i have recieved;witnessed the telephone consent.call light/telephone placed w/in reach of the pt.
[2019-05-28] MEDS: PIPERACILLIN/TAZO 3.375/DEX-IS 50 ML IV SCH ×3 (05:09→21:07)
--- NOTE | 2019-05-28 06:30 | NUR ---
pt.assessed.pt.assessed for cleanliness.pt.cleaned.pt.repositioned.i have attended to the wound care.general status stable.respiratory status stable.call light/telephone placed w/in reach of the pt.flacc;pt.absent facial grimaces.body posturing.
--- NOTE | 2019-05-28 07:25 | NUR ---
opening note patient is resting in bed, has the blankets and sheet over his whole upper body, assessment completed, educated transplant nurse practitioner light system and plan of care, patient did not allow me to take his blood pressure on his arms but allow me on his right leg, patient did not give me any verbal responses and grunted and swung his arm at time, no signs of distress, IV fluids running, fall/safety precautions in place, patient is NPO for surgery today.
[2019-05-28 08:00] VITALS: BP_SYST 138
[2019-05-28] MEDS: BALSAM PERU/CASTOR OIL 60 GM OINT...G. TP SCH (08:06)
[2019-05-28] MEDS: amLODIPine BESYLATE 10 MG TABLET PO SCH (08:06)
[2019-05-28 08:44] LABS: BASOPHILS # (AUTO) 0.1 K/uL (0.0-0.2); BASOPHILS % (AUTO) 0.8 % (0.0-2.0); EOSINOPHILS # (AUTO) 0.6 K/uL (0.0-0.4); EOSINOPHILS % (AUTO) 7.4 % (0.0-4.0); HEMATOCRIT 26.7 % (36-54); HEMOGLOBIN 8.8 g/dL (14.0-18.0); LYMPHOCYTES # (AUTO) 1.5 K/uL (1.0-5.5); LYMPHOCYTES % (AUTO) 18.8 % (20.5-51.5); MEAN CORPUSCULAR HEMOGLOBIN 28 pg (27-31); MEAN CORPUSCULAR HGB CONC 33 % (32-36); MEAN CORPUSCULAR VOLUME 84 fL (79.0-98.0); MONOCYTES # (AUTO) 0.8 K/uL (0.0-1.0); MONOCYTES % (AUTO) 10.3 % (1.7-9.3); NEUTROPHILS # (AUTO) 5.1 K/uL (1.8-7.7); NEUTROPHILS % (AUTO) 62.7 % (40.0-70.0); PLATELET COUNT (AUTO) 299 K/uL (130-430); RED CELL DISTRIBUTION WIDTH 20.5 % (9.0-15.0); WHITE BLOOD COUNT (AUTO) 8.1 K/uL (4.8-10.8)
[2019-05-28 08:56] LABS: ANION GAP 8 (5-15); CALCIUM 8.6 mg/dL (8.4-11.0); CHLORIDE 105 mmol/L (98-107); CREATININE 0.68 mg/dL (0.55-1.30); GLUCOSE 90 mg/dL (70-99); POTASSIUM 3.7 mmol/L (3.5-5.1); SODIUM SERUM 139 mmol/L (136-145); UREA NITROGEN, BLOOD 7 mg/dL (8-21)
--- NOTE | 2019-05-28 09:50 | NUR ---
rounds patient is resting in bed, eyes closed breathing easy and nonlabored, no needs addressed at this time, fall/safety precautions in place, IV fluids running, I called the House Sup about a time for surgery and she said that Dr Ma still has not called for a time.
[2019-05-28 11:16] VITALS: BP_SYST 121
--- NOTE | 2019-05-28 11:55 | NUR ---
new D5 1/2NS bag hung assisted STAFF ANALYST with cleaning and changing patient, IV fluids running, no other needs addressed at this time, fall/safety precautionsin place.
[2019-05-28] MEDS: D5/0.45 NS 1,000 ML IV SCH (11:56)
--- NOTE | 2019-05-28 14:45 | NUR ---
IV RE-INSERTION: Restarted on left forearm. Successful after 1attempts. Resumed current IVF of D5 1/2NS and regulated @ 75 per hour. Will observe for any signs of infiltration.
[2019-05-28 15:23] VITALS: BP_SYST 129
--- NOTE | 2019-05-28 15:55 | NUR ---
patient off unit going to surgery.
--- NOTE | 2019-05-28 16:00 | NUR ---
spoke to Chuck the POA on the phone Dr Ma spoke to him that he needs to consent for the PA student and medical student to assist Dr Ma in surgery and that he does need the assistance of them or surgery can be cancelled, he telephone consented for it and it was double verified by Tony the OR nurse.
[2019-05-28] MEDS ORDERED: ONDANSETRON HCL 4 MG/2 ML VIAL IVP PRN (17:30)
[2019-05-28] MEDS ORDERED: fentaNYL CITRATE/PF 100 MCG/2 ML AMP IVP PRN ×2 (17:30)
[2019-05-28 17:40] VITALS: BP_SYST 121
--- NOTE | 2019-05-28 18:42 | NUR ---
PATIENT NOT BACK YET WILL ENDORSE REPORT TO NOC SHIFT NURSE.
--- NOTE | 2019-05-28 19:02 | NUR ---
Paged Dr. Ma s/w Kandace.
--- NOTE | 2019-05-28 19:03 | NUR ---
1849 PATIENT BACK ON UNIT FROM THE PACU, VITALS TAKEN, IN STABLE CONDITION, FAMILY IN THE ROOM, DR ALCAZAR WAS PAGED FOR DIET ORDERS AND DR ALCAZAR SAYS THE DIET HE WAS ON CAN BE RESUMED. Addendum: 05/28/19 at 1904 by Samanta Walker RN WILL ENDORSE REPORT TO NOC SHIFT NURSE TOP CONTINUE WITH CARE, RESUME THE POST OP VITALS.
--- NOTE | 2019-05-28 19:25 | NUR ---
CHANGE OF SHIFT; S/P Left AKA, dressing intact, family at bedside, pt. confused and disoriented. IVF infusing via left forearm. BP machine monitoring VS post op. on fall risk precautions. call light at bedside. bed alarm on.
--- NOTE | 2019-05-28 19:45 | NUR ---
NOTES: pt. starting to complain of post op pain per family, getting restless, [place] po given , crushed with apple sauce and tolerated fairly. VS checked. pt. family remain at bedside. will recheck later. on room air, denies shortness of breath.
[2019-05-28 19:50] VITALS: BP_SYST 132
--- NOTE | 2019-05-28 20:23 | NUR ---
Paged Dr. Ma s/w Kandace.
--- NOTE | 2019-05-28 20:25 | NUR ---
NOTES: called Dr. ALCAZAR and returned the call and informed him of pt. level of pain, still having a lot of pain even with [place] po, family at bedside, S/P left AKA, will order IV pain medication , informed family.
[2019-05-28] MEDS ORDERED: HYDROmorphone 1 MG INJ. 1 MG/ML AMPUL IM PRN (20:45)
[2019-05-28] MEDS ORDERED: MORPHINE 4 MG/ML INJ. SYRINGE IVP PRN (20:45)
[2019-05-28] MEDS: DOCUSATE SODIUM 100 MG CAPSULE PO SCH (21:00)
--- NOTE | 2019-05-28 21:05 | NUR ---
NOTES: Dr. Ramirez here, seen pt. stiill restless due to post op pain, medicated with IV Dilaudid, family at bedside and informed about medication. family will stay for the night since pt. confused and attempting to remove IV , pt. forgetful. kept left AKA with pillow. sequential on rt. leg.
--- NOTE | 2019-05-28 22:00 | NUR ---
NOTES: pt. able to sleep, noted relief from pain. IVF patent, due IV antibiotic infused. condition observed.
--- NOTE | 2019-05-29 | NUR ---
NOTES: pt. asleep, no complaints of pain noted. family remained at bedside,
--- NOTE | 2019-05-29 02:05 | NUR ---
NOTES: pt. sleeping, pretty calm. continue to monitor.
[2019-05-29] MEDS: D5/0.45 NS 1,000 ML IV SCH ×2 (03:00→14:20)
--- NOTE | 2019-05-29 04:00 | NUR ---
NOTES: condition unchanged, pretty calm with family at bedside. IVF patent and infusing well.
--- NOTE | 2019-05-29 05:27 | NUR ---
NOTES: pt. awakened, incontinent of urine, am and rebeca care done. left stump dressing intact with cooper bandage.kept elevated with pillow. repositioned. tried to fight and not cooperate. IV site patent.
[2019-05-29] MEDS ORDERED: HYDROmorphone 1 MG INJ. 1 MG/ML AMPUL IVP PRN (05:30)
[2019-05-29] MEDS: PIPERACILLIN/TAZO 3.375/DEX-IS 50 ML IV SCH (05:41)
[2019-05-29] MEDS: HYDROmorphone 1 MG INJ. 1 MG/ML AMPUL IVP PRN ×2 (05:41→17:17)
--- NOTE | 2019-05-29 06:00 | NUR ---
NOTES: IV site got infiltrated, skin reddened, another IV site on left upper arm, resume IVF and IV antibiotic. pain medication given for c/o post op pain. pt. 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 tried to explain things to him. pt. family member remain at bedside.
[2019-05-29 06:30] VITALS: BP_SYST 143
--- NOTE | 2019-05-29 06:43 | NUR ---
CLOSING NOTES; pt. pretty calm, noted relief. sleeping. IVF patent, safety measures in place. family member at bedside. for further care and assistance. left stump dressing dry and intact, sequential on rt. leg in place.
--- NOTE | 2019-05-29 07:25 | NUR ---
opening note patient is resting in bed, daughter at the bedside, assessment completed, educated coronary care unit nurse light system and plan of care, patient drowsy and nodded his head, daughter helping me with communication barrier, no signs of distress, IV fluids running, fall/safety precautions in place, left stump still has first surgical dressing from surgery and no orders yet for dressing change.
[2019-05-29 08:09] VITALS: BP_SYST 126; BP_SYST 132
[2019-05-29 08:29] LABS: BASOPHILS % (AUTO) 0.5 % (0.0-2.0); EOSINOPHILS # (AUTO) 0.3 K/uL (0.0-0.4); EOSINOPHILS % (AUTO) 3.5 % (0.0-4.0); LYMPHOCYTES # (AUTO) 1.5 K/uL (1.0-5.5); LYMPHOCYTES % (AUTO) 18.7 % (20.5-51.5); MEAN CORPUSCULAR HEMOGLOBIN 28 pg (27-31); MEAN CORPUSCULAR HGB CONC 34 % (32-36); MEAN CORPUSCULAR VOLUME 84 fL (79.0-98.0); MONOCYTES # (AUTO) 0.9 K/uL (0.0-1.0); MONOCYTES % (AUTO) 11.8 % (1.7-9.3); NEUTROPHILS # (AUTO) 5.2 K/uL (1.8-7.7); NEUTROPHILS % (AUTO) 65.5 % (40.0-70.0); PLATELET COUNT (AUTO) 278 K/uL (130-430); RED BLOOD CELL COUNT(AUTO) 2.87 MIL/uL (4.2-6.2); RED CELL DISTRIBUTION WIDTH 19.6 % (9.0-15.0); WHITE BLOOD COUNT (AUTO) 7.9 K/uL (4.8-10.8)
[2019-05-29] MEDS: BALSAM PERU/CASTOR OIL 60 GM OINT...G. TP SCH (08:38)
[2019-05-29] MEDS: amLODIPine BESYLATE 10 MG TABLET PO SCH (08:45)
[2019-05-29 08:46] LABS: ANION GAP 6 (5-15); CALCIUM 7.9 mg/dL (8.4-11.0); CHLORIDE 102 mmol/L (98-107); CREATININE 0.62 mg/dL (0.55-1.30); GLUCOSE 120 mg/dL (70-99); SODIUM SERUM 135 mmol/L (136-145); UREA NITROGEN, BLOOD 6 mg/dL (8-21)
--- NOTE | 2019-05-29 10:21 | NUR ---
cleaned patient assisted patient with helping clean and change patient, new D5 1/2 NS bag will be hung, no other needs at this time, fall/safety precautions in place, IV fluids running.
[2019-05-29 11:18] VITALS: BP_SYST 138
--- NOTE | 2019-05-29 12:30 | NUR ---
rounds patient is resting in bed, family in the room, daughter is feeding patient, no needs addressed at this time, IV fluids running, fall/safety precautions in place.
--- NOTE | 2019-05-29 14:36 | NUR ---
cleaned patient assisted patient with helping clean and change patient, no other needs at this time, fall/safety precautions in place, IV fluids running.
[2019-05-29 15:18] VITALS: BP_SYST 131
--- NOTE | 2019-05-29 16:43 | NUR ---
rounds patient is resting in bed, family in the room, reinforced IV dressing because patient was attempted to take it off, no other needs addressed at this time, IV fluids running, fall/safety precautions in place.
--- NOTE | 2019-05-29 19:15 | NUR ---
CHANGE OF SHIFT; pt. sleeping when checked, family member at bedside. IVF patent. S/P left AKA, dressing intact. call light at bedside.
--- NOTE | 2019-05-29 19:27 | NUR ---
closing note patient is resting in bed, family in the room, no other needs addressed at this time, IV fluids running, fall/safety precautions in place, report was given to noc shift nurse to continue with care, pain medication was given earlier and patient is still drowsy from it with no signs of distress, breathing easy and nonlabored, Dr Ma or Dr Gordon has not come for rounds.
--- NOTE | 2019-05-29 20:30 | NUR ---
NOTES: pt. been dozing on and off, easily awakened but gets restless every now and then. left stump site dressing intact with cooper bandage. sequential on rt. leg. pt. gets all over the bed. IV keeps alarming and keeps bending inspite of telling him. on safety precautions.
[2019-05-29 20:45] VITALS: BP_SYST 130
--- NOTE | 2019-05-29 21:00 | NUR ---
NOTES: complete hs care done, incontinent of urine, rebeca care done, kept dry and warm with blanket. repopsitioned. family member remain at bedside.
[2019-05-29] MEDS: DOCUSATE SODIUM 100 MG CAPSULE PO SCH (21:25)
--- NOTE | 2019-05-29 22:00 | NUR ---
NOTES: IV site keeps alarming, restarted another IV on rt. forearm with nurse Hsaista, securely taped with kerlix and resume IVF.
--- NOTE | 2019-05-30 | NUR ---
NOTES: pt. calm and does not need to give pain medication at this time. condition observed.
--- NOTE | 2019-05-30 02:15 | NUR ---
NOTES: IV alarming, IV bag changed. pt . remain sleeping, no c/o pain noted. family member at bedside.
[2019-05-30] MEDS: D5/0.45 NS 1,000 ML IV SCH ×2 (02:18→15:56)
[2019-05-30] MEDS: HYDROmorphone 1 MG INJ. 1 MG/ML AMPUL IVP PRN ×2 (04:00→21:34)
--- NOTE | 2019-05-30 04:00 | NUR ---
NOTES: pt. getting restless and agitated, noted to have pain on his left stump, medicated with IV Dilaudid. incontinent of urine, rebeca care done with WOOD FENCE ERECTOR and kept dry, repositioned. family member helping for communication, remain at bedside. fall risk precautions. IVF patent.
[2019-05-30 04:17] VITALS: BP_SYST 132
--- NOTE | 2019-05-30 06:00 | NUR ---
NOTES: pt. been sleeping after IV Dilaudid.
--- NOTE | 2019-05-30 06:40 | NUR ---
CLOSING NOTES; pt. remain sleeping, no distress, not in pain. IV site patent, IVF infusing with D5 1/2 NS @ 75 cc.hr gets agitated/restless when awake and forgetful and tends to pull out such his IV, grab dressing on his left stump. frequent reorientation needed. pt. daughter at bedside. for further care and assistance. call light at bedside. safety measures in place. will endorse to incoming shift.
--- NOTE | 2019-05-30 07:15 | NUR ---
rn opening note Report was endorsed by night nurse. Patient appears to be resting breathing is equal and non labored. Patients family member at bed side. is also sleeping. Patient shows no signs of any distress, patient is close to nursers station. all safety precautions in place. will continue to monitor.
[2019-05-30] MEDS: BALSAM PERU/CASTOR OIL 60 GM OINT...G. TP SCH (09:00)
[2019-05-30 09:16] VITALS: BP_SYST 117
[2019-05-30] MEDS: amLODIPine BESYLATE 10 MG TABLET PO SCH (09:20)
--- NOTE | 2019-05-30 09:21 | NUR ---
Medication Patients scheduled medication given as order. Addendum: 05/30/19 at 1151 by Liliane Farah RN Patient is awake and alert with confusing, trying to pull out IV tried to reorient but unable too. patients shows no signs of acute distress, breathing is equal and non labored. 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 patient has no other needs at this time. Patient has all safety precautions in place. Patients family member at bed side. Patient is close to nurses station. patient family educated button station worker light for assistance. will continue to monitor.
[2019-05-30 11:32] VITALS: BP_SYST 118
--- NOTE | 2019-05-30 11:47 | NUR ---
rn rounding Patient appears to be resting breathing is equal and non labored. Patient has daughter at bed side. Patient has all safety precautions in place. Patient is close to nurses station. Patient family educated sap treasury consultant light with patient. Patients family has call light. No other needs at this time. will continue to monitor.
--- NOTE | 2019-05-30 13:18 | NUR ---
rn rounding Patient is awake and alert, confusion tried to reorient but no able to understand. family is at bed side. patient is currently eating lunch. Patients family member is feeding patient. Patient has all safety precautions in place. Patient is close to nurses station. Patient shows no signs of any distress, breathing is equal and non labored. Patient has no other needs at this time. will continue to monitor.
--- NOTE | 2019-05-30 14:35 | NUR ---
Nutrition F/U RD reviewed pt's current EMR including diet Hx, physician notes, nursing notes, pertinent labs/meds/procedures, care trends and care activity. Current Diet Order: Mechanical soft diet x 1 day Subjective information: Pt seen sleeping in bed, w/ 2 daughters at bedside. Pt is POD#2, S/P AKA 05/28/19. Daughters reported that pt has not been eating as much of the solid food but has been tolerating and drinking 100% of the Ensure. This morning, pt was able to eat 4 bites of the muffin, 100% of Ensure, 100% fruit juice and few spoons of oatmeal. Per EMR, poor PO intake 42% average of 3 meals 05/29/19. ONS and modulars Rashad and Prosource are warranted for wound healing and increased need for protein. RD explained to family about plans, family agreed. Pt does not eat pork or beef. Current PO intake: POOR (42%) Estimated Energy Expenditure (kcals/day) 0884-0083 kcal/day (30-35 kcal/kg CBW for wound healing) Estimated Protein Required (g/day) 105-140 gm/day (1.5-2 gm/kg CBW for wound healing) Estimated Fluid Required (l/day) 2.1-2.5 L/day (1ml/calorie for wound healing) Problem/Etiology/Signs/Symptoms Inadequate nutrient intake r/t poor appetite AEB PO intake not meeting 75% of estimated needs. *ongoing Increased nutrient needs r/t metabolic demands AEB estimated calorie and protein needs for wound healing. *ongoing Expected Outcomes/Goals Monitor appetite and PO intake w/ goal of pt meeting at least 75% of estimated nutritional needs, labs trending WNL, normal GI function, skin integrity/wt maintenance. Dietitian Recommendations *Recommend Mechanical soft diet w/ Ensure WEnlive BID, Rashad BID and Prosource TID. ONS and modulars will provide: 1040 kcal and 90 gm protein daily. * Encourage pt to increase PO intake. * Consider MVI QD and Megace to stimulate appetite. Follow Up High Risk: F/U in 2-3days
--- NOTE | 2019-05-30 14:42 | NUR ---
Dietitian Recommendations *Recommend Mechanical soft diet w/ Ensure WEnlive BID, Rashad BID and Prosource TID. ONS and modulars will provide: 1040 kcal and 90 gm protein daily. * Encourage pt to increase PO intake. * Consider MVI QD and Megace to stimulate appetite. Please see nutrition F/U note for details. CHARANJIT, RD
--- NOTE | 2019-05-30 15:17 | NUR ---
rn rounding Patient appears to be resting breathing is equal and non labored. Patient has all safety precautions in place. Family member at bed side. Patient shows no signs of acute distress. MD at bed side. No other needs at this time. will continue to monitor.
[2019-05-30 15:24] VITALS: BP_SYST 122
--- NOTE | 2019-05-30 15:45 | NUR ---
DC PLANNING Order to dc back to SNF if ok per surgeon. Spoke w dtr Nuno @ bedside, states pt is from [facility] & agreeable w dc back today if cleared by surgeon. armand Baker planner internship aware.
--- NOTE | 2019-05-30 15:58 | NUR ---
iv fluid Patents iv fluid started as ordered. Patient appears to be resting with both eyes closed no signs of any distress,breathing is equal and non labored.Patient's family is at bed side. Patient shows no signs of distress,breathing is equal and non labored. Patient is close to nurses station. All safety precautions in place. Will continue to monitor.
--- NOTE | 2019-05-30 19:30 | NUR ---
Opening notes Received report. Patient is resting in bed. No signs of distress noted. Breathing even and unlabored. IV patent and intact, infusing fluids. No needs at this time. Daughter at bedside and updated on plan of care. Call light with the patient. Safety precautions in place.
--- NOTE | 2019-05-30 19:40 | NUR ---
Medications/ Scheduled and prn pain medications given. Educated the action and side effects of medications. Patient tolerated well. No signs of allergic reaction noted. Dr. Ma at bedside and looked at incision and stated patient is clear discharge. Incision care done. Cleansed with normal saline. Pat dry and covered with ABD pad and wrapped with bandage. Addendum: 05/31/19 at 0440 by Nelia Christianson RN CORRECTION: TIME SHOULD BE DONE AT 2140.
[2019-05-30 20:00] VITALS: BP_SYST 115
[2019-05-30] MEDS ORDERED: guaiFENesin/DEXTROMETHORPHAN 10 ML UDC PO PRN (21:15)
[2019-05-30] MEDS: DOCUSATE SODIUM 100 MG CAPSULE PO SCH (21:33)
--- NOTE | 2019-05-30 23:30 | NUR ---
Hygiene care Patient incontinent. Hygiene care provided. No other needs. Call light with the patient. Safety precautions in place. Daughter at bedside.
[2019-05-31 00:52] VITALS: BP_SYST 115
--- NOTE | 2019-05-31 02:00 | NUR ---
Sleeping Patient sleeping. No signs of distress noted. Breathing even and unlabored. IVF infusing well. Call light with the patient. Safety precautions in place. Daughter at bedside.
--- NOTE | 2019-05-31 04:44 | NUR ---
Hygiene care provided. Patient tolerated well. No signs of distress noted. Breathing even and unlabored. Call light with the patient. Safety precautions in place. Daughter at bedside.
[2019-05-31] MEDS: D5/0.45 NS 1,000 ML IV SCH (05:36)
--- NOTE | 2019-05-31 06:27 | NUR ---
Closing notes Patient is resting comfortably in bed. No signs of distress noted. Breathing even and unlabored. IV patent and intact, infusing fluids. all needs met throughout the shift. Call light with the patient. Safety precautions in place. Daughter at bedside. Will endorse care to day shift RN.
[2019-05-31] MEDS ORDERED: FLU VACC TS2019(65UP)/MF59C/PF 45 MCG/0.5 ML SYRINGE I.M. PRN (06:30)
--- NOTE | 2019-05-31 07:15 | NUR ---
sbar report received at the bedside. daughter is at the bedside. breathing even and unlabored. lungs bilaterally clear. abdomen soft and non distended. has 2 iv access on the left upper arm #22 saline lock. and rt forearm #22 with iv fluids of D51/2 NS at 75cc/hr infusing on well. bed in low position. has dressing the left aka dry and intact.
[2019-05-31 07:53] VITALS: BP_SYST 128
[2019-05-31] MEDS: amLODIPine BESYLATE 10 MG TABLET PO SCH (08:11)
--- NOTE | 2019-05-31 08:25 | NUR ---
daugther feeding the patient. has iv fluids infusing on well.
--- NOTE | 2019-05-31 08:26 | NUR ---
due medication given as ordered. crushed medication with apple sauce. hob elevated.
[2019-05-31] MEDS: BALSAM PERU/CASTOR OIL 60 GM OINT...G. TP SCH (09:00)
[2019-05-31] MEDS: HYDROmorphone 1 MG INJ. 1 MG/ML AMPUL IVP PRN (09:13)
--- NOTE | 2019-05-31 09:13 | NUR ---
dilaudid iv given for pain. made comfortable.
--- NOTE | 2019-05-31 10:00 | NUR ---
dressing changed at this time on the left aka.
[2019-05-31 10:19] VITALS: BP_SYST 130
--- NOTE | 2019-05-31 10:47 | NUR ---
called dr cueva for discharge order. awaiting to call back. spoke to [employer] Education Manager she had bed available [facility] from yesterday.
--- NOTE | 2019-05-31 11:34 | NUR ---
awaiting for dr Ramirez to come and see the patient.
[2019-05-31 12:12] VITALS: BP_SYST 139
--- NOTE | 2019-05-31 14:00 | NUR ---
called dr cueva for discharge order.
[2019-05-31 15:42] VITALS: BP_SYST 111
--- NOTE | 2019-05-31 16:24 | NUR ---
flu shot given at this time. at left deltoid area.
--- NOTE | 2019-05-31 16:28 | NUR ---
Discharge Planning: DCP spoke with [facility] ([phone]) Rm 9A, transportation arrange the Car [phone] Reser#[id number]. Patient packet taken to floor.
--- NOTE | 2019-05-31 16:44 | NUR ---
Transport: ambulance to arrive at 1845 for [facility] Spoke with Cuco
[2019-05-31 17:24] VITALS: BP_SYST 111
--- NOTE | 2019-05-31 17:30 | NUR ---
sbar report given to Sukhwinder MORALES in [facility] and patient going to Room 9-A
--- NOTE | 2019-05-31 18:04 | NUR ---
CALLED ISAMAR BECKETT TO INFORMED PATIENT WILL BE DISCHARGED TONITE. AND SISTER AUTHORIZES HER TO OKAY TO SIGNED.
--- NOTE | 2019-05-31 18:50 | NUR ---
dressing changed at the left aka.x 2. cleanse normal saline and applied venelex cream and apply abd dressing and cover with socorro and then covered with cooper bandage.
--- NOTE | 2019-05-31 19:00 | NUR ---
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 discharged instruction signed by the sister with authorization of ISAMAR Woods the brother. discharged summary given. endorsed to the crew [facility]. [facility] id band removed. placed a new plain id band. still has iv access x 2 in placed.
== END 2019-05-31 19:10 | DRG 305 ==
LOC: SED 19:50 → STU 21:57 → SMU 05-23 15:49
PROVIDERS: ADMIT Internal Medicine; ATTEND Internal Medicine
PROC: 0Y6D0Z3 Detachment at Left Upper Leg, Low, Open Approach (ICD-10-PCS; principal; 2019-05-28 09:00)
DX: C43.72 Malignant melanoma of left lower limb, including hip (principal); I96 Gangrene, not elsewhere classified; E43 Unspecified severe protein-calorie malnutrition; G93.40 Encephalopathy, unspecified; L03.116 Cellulitis of left lower limb; F03.91 Unspecified dementia, unspecified severity, with behavioral disturbance; D64.9 Anemia, unspecified; I10 Essential (primary) hypertension; K59.00 Constipation, unspecified; Z85.820 Personal history of malignant melanoma of skin; R26.9 Unspecified abnormalities of gait and mobility; Z79.899 Other long term (current) drug therapy; Z74.01 Bed confinement status
CPT/HCPCS: 36415; 71045; 71260-TC; 80048; 80053; 81003; 83605; 85025; 85610-TC; 86870; 86886; 86900; 86901; 87040-TC; 87070-TC; 87081; 87186-TC; 88307; 88341; 88342; 93005; 96361; 96365; 99285; C1713; G0378; J1170; J2250; J2543; J3370; J7030; J7120; Q9964; Q9967